=== PATIENT | male | born 1955 | race Caucasian/White ===

== ENCOUNTER → 2020-04-27 09:09 | Outpatient (CLI) | payer BC ==
[2015-06-06 14:42] VITALS: BMI 32.3
[~2020-04-27 09:09] MED LIST: AMBIEN10 MG PO; CIALIS2.5 MG PO; CLEOCIN HCL300 MG PO; LIVALO4 MG PO; METOPROLOL TART50 MG PO; PRAVACHOL40 MG PO; PRILOSEC20 MG PO; PROTONIX40 MG PO; TESTOSTERON200 MG/ML IM; VALTREX1000 MG PO
== END | disposition home or self-care (01) ==
LOC: D.LAB 09:09
PROVIDERS: ATTEND Surgery
DX: Z11.59 Encounter for screening for other viral diseases (principal)

== ENCOUNTER 2020-04-28 06:26 | Day surgery (SDC) | payer BC ==
[~2020-04-28] VITALS: Ht 193 cm; Wt 113.6 kg
[~2020-04-28 06:26] MED LIST changes: -AMBIEN10 MG PO; -CIALIS2.5 MG PO; -PRAVACHOL40 MG PO; -PROTONIX40 MG PO; -VALTREX1000 MG PO
[2020-04-28] MEDS ORDERED: PRAVACHOL40 MG PO (08:56)
[2020-04-28] MEDS ORDERED: PROTONIX40 MG PO (08:56)
[2020-04-28] MEDS ORDERED: VALTREX1000 MG PO (08:57)
[2020-04-28] MEDS ORDERED: AMBIEN10 MG PO (08:57)
[2020-04-28] MEDS ORDERED: CIALIS2.5 MG PO (08:58)
[2020-04-28 09:04] VITALS: Ht 193 cm; Wt 113.6 kg
--- NOTE | 2020-04-29 16:01 | OP ---
PATIENT NAME: THOMPSON AGUILAR MEDICAL RECORD: [id number] :55 LOCATION:D.OPS ADMISSION DATE: SURGEON: PITER MOSER MD DATE OF OPERATION: 04/28/2020 PREOPERATIVE DIAGNOSIS: History of colon polyps. POSTOPERATIVE DIAGNOSES: History of colon polyps with 4 new colorectal polyps, all 9 mm in size or less. All were sessile. PROCEDURES: 1. Total colonoscopy to cecum. 2. Hot biopsy forceps polypectomies times 4. SURGEON: Piter Moser MD ACCOUNTING COORDINATOR: None. BLOOD LOSS: Minimal. ANESTHESIA: IV sedation. COMPLICATIONS: None. The risks, possible complications and alternatives to the procedure were explained to the patient. He elects to proceed. ENDOSCOPIC COURSE: The patient was conveyed to the endoscopy suite electively on 04/28/2020. IV sedation was induced by the anesthesia staff. The patient was placed in the [place] position. A digital rectal examination was performed. A colonoscope was inserted through the anus. It was easily advanced to the cecum. The prep was inadequate. I slowly withdrew the endoscope. I irrigated and aspirated extensively. I dragged the folds. A combination of normal imaging and narrow band imaging were utilized. Four hot biopsy forceps polypectomies were performed. The polyps were removed in their entireties. The pullback was greater than a 15-minute pullback. A retroflexed view was obtained in the rectum. I then unretroflexed the scope and removed it under direct vision. I will see the patient in my office in 2-3 weeks. I will plan for his next colonoscopy to take place in 3 years. TRANSINT:[id number] Voice Confirmation ID: [id number] DOCUMENT ID: [id number] PITER MOSER MD at 1601 CC: KIRTI BARNHART [id number] DICTATION DATE: 04/28/20 1357 HEEL SPRAYER FIRST: 04/28/20 2535 [facility] 04/28/[address] [address]
--- NOTE | 2020-04-29 16:07 | HP ---
PATIENT: THOMPSON AGUILAR MEDICAL RECORD: [id number] ACCOUNT: [id number] LOCATION:.[facility] : 55 ADMISSION DATE: 04/28/20 PCP: ARMANDO BARNHART MD HISTORY AND PHYSICAL EXAMINATION PREOPERATIVE DIAGNOSIS: History of colon polyps. HISTORY OF PRESENT ILLNESS: The patient has a history of colon polyps. His last colonoscopy was in 2011. He is going to undergo colonoscopy today. HOME MEDICATIONS: Please see the nursing list. ALLERGIES: No known drug allergies. SOCIAL HISTORY: Nonsmoker. PAST MEDICAL AND SURGICAL HISTORY: Gastroesophageal reflux, kidney stones, history of colon polyps. REVIEW OF SYSTEMS: Negative for diabetes or thyroid problems. Negative for CVA or seizures. PHYSICAL EXAMINATION: GENERAL: The patient does not appear acutely ill. He does not appear chronically ill. VITAL SIGNS: Reviewed. EARS: External ears appear normal. EYES: Extraocular movements are intact. NECK: Trachea is midline. CHEST: No intercostal retractions. IMPRESSION: History of colon polyps. PLAN: Colonoscopy. TRANSINT:[id number] Voice Confirmation ID: [id number] DOCUMENT ID: [id number] DEYSI MOSER MD at 1607 CC: KIRTI BARNHART [id number] DICTATION DATE: 04/28/20 1308 [employer]IPPING POINT INSPECTOR: 04/28/20 1347 [facility] 04/28/[address] [address]
== END 2020-04-28 14:50 | disposition home or self-care (01) ==
LOC: D.OPS 06:26
PROVIDERS: ATTEND Surgery
DX: Z86.010 Personal history of colon polyps (principal); K63.5 Polyp of colon; K21.9 Gastro-esophageal reflux disease without esophagitis; N20.0 Calculus of kidney